=== PATIENT | female | born 1975 | race African-American/Black ===

== ENCOUNTER 2019-05-02 20:10 | Emergency (ER) | payer OTHER ==
[~2019-05-02] VITALS: Ht 165.1 cm; Wt 130.2 kg
[2019-05-02 23:27] VITALS: BP 133/77
== END 2019-05-02 23:28 | disposition home or self-care (01) ==
LOC: ER 20:10
DX: T17.228A Food in pharynx causing other injury, initial encounter (principal); E11.9 Type 2 diabetes mellitus without complications; F17.210 Nicotine dependence, cigarettes, uncomplicated; Z88.8 Allergy status to other drugs, medicaments and biological substances; X58.XXXA Exposure to other specified factors, initial encounter; Y93.89 Activity, other specified; Y92.89 Other specified places as the place of occurrence of the external cause; Y99.8 Other external cause status

== ENCOUNTER 2020-10-04 00:45 | Emergency (ER) | payer OTHER ==
[~2020-10-04] VITALS: Ht 165.1 cm; Wt 130.2 kg
[2020-10-04] MEDS ORDERED: LISINOPRIL10 MG PO (00:55)
[2020-10-04] MEDS ORDERED: NOVOLOG FL100 UNIT/M SUBQ (00:56)
[2020-10-04] MEDS ORDERED: LANTUS SOL100 UNIT/1 SUBQ (00:56)
[2020-10-04] MEDS ORDERED: SYMBICORT80 MCG/4.1 INH (00:57)
[2020-10-04] MEDS ORDERED: TOVIAZ4 M1 PO (00:57)
[2020-10-04] MEDS ORDERED: PREDNISONE 20 M20 MG PO (02:29)
[2020-10-04 02:44] VITALS: BP 122/75
== END 2020-10-04 02:44 | disposition home or self-care (01) ==
LOC: ER 00:45
DX: L50.9 Urticaria, unspecified (principal); E11.9 Type 2 diabetes mellitus without complications; F17.210 Nicotine dependence, cigarettes, uncomplicated; Z79.2 Long term (current) use of antibiotics; Z79.4 Long term (current) use of insulin; Z79.899 Other long term (current) drug therapy; Z88.6 Allergy status to analgesic agent; Z85.3 Personal history of malignant neoplasm of breast